=== PATIENT | female | born 1995 | race Caucasian/White ===

== ENCOUNTER 2021-06-10 03:14 | Emergency (ER) | payer OTHER, MEDICAID ==
[~2021-06-10] VITALS: Ht 160 cm; Wt 95.3 kg
[~2021-06-10 03:14] MED LIST: ACETAMINOPHEN-1 EAC1 PO; FLOXIN OTI0.3 %/5 M1 OT; IBUPROFEN 800800 MG PO
[2021-06-10] MEDS ORDERED: CELEBREX 200 M200 M1 PO (03:41)
[2021-06-10] MEDS ORDERED: SINGULAIR 10 MG10 M1 PO (03:41)
[2021-06-10] MEDS ORDERED: ZYRTEC10 M4 PO (03:42)
[2021-06-10] MEDS ORDERED: FLONASE 0.05%50 MCG NARES (03:43)
[2021-06-10 04:00] LABS: URINE BLOOD NEGATIVE (Negative); URINE CLARITY CLEAR; URINE COLOR DARK YELLOW; URINE GLUCOSE-RANDOM NEGATIVE (Negative); URINE KETONES NEGATIVE (Negative); URINE LEUKOCYTES-REFLEX NEGATIVE (Negative); URINE NITRITE-REFLEX NEGATIVE (Negative); URINE PROTEIN NEGATIVE (Negative); URINE SPECIFIC GRAVITY 1.025 (1.005-1.030)
[2021-06-10 04:03] LABS: ICTOTEST (BILI CONFIRMATORY) Negative (Negative); URINE BILIRUBIN 1+ (Negative)
[2021-06-10 05:00] LABS: HEMATOCRIT 39.1 % (37.0-47.0); HEMOGLOBIN 13.3 gm/dL (12.0-15.0); MCH 29.3 pg (26.0-34.0); MCHC 33.9 g/dL (28.0-37.0); MCV 86.3 fL (80.0-100.0); MPV 7.5 fl. (7.2-11.1); NUCLEATED RBCS 0 /100WBC; PLATELET COUNT* 273 thou/uL (150-400); RBC 4.53 mil/uL (4.20-5.00); RDW-CV 13.3 % (10.5-14.5); WBC 10.4 thou/uL (4.0-11.0)
[2021-06-10 05:10] LABS: CALCIUM 8.7 mg/dL (8.5-10.1); CREATININE 0.9 mg/dL (0.6-1.3); POTASSIUM 3.4 mmol/L (3.5-5.1)
[2021-06-10] MEDS ORDERED: TORADOL 10 MG T10 MG PO (05:38)
[2021-06-10] MEDS ORDERED: METRONIDAZOLE500 M4 PO (05:38)
[2021-06-10] MEDS ORDERED: ACETAMINOPHEN-1 EAC2 PO (05:38)
[2021-06-10 05:54] VITALS: BP 129/64
[2021-06-10 06:01] LABS: ABSOLUTE EOSINOPHILS 0.1 thou/uL (0.0-0.7); ABSOLUTE LYMPHOCYTES 1.5 thou/uL (0.8-5.3); ABSOLUTE MONOCYTES 0.2 thou/uL (0.0-1.2); ABSOLUTE NEUTROPHILS 8.6 thou/uL (1.6-8.1); PLATELET ESTIMATE ADEQUATE
== END 2021-06-10 05:54 | disposition home or self-care (01) ==
LOC: M.ERS 03:14
PROVIDERS: Personal Emergency Response Attendant
DX: N76.0 Acute vaginitis (principal); R10.2 Pelvic and perineal pain; Z90.89 Acquired absence of other organs; Z79.899 Other long term (current) drug therapy; Z88.5 Allergy status to narcotic agent